=== PATIENT | male | born 1990 | race Caucasian/White ===

== ENCOUNTER 2019-09-11 11:39 | Emergency (ER) | payer SELFPAY ==
[~2019-09-11] VITALS: Ht 185.4 cm; Wt 81.8 kg
[2019-09-11 11:48] VITALS: Ht 185.4 cm; Wt 81.8 kg
[2019-09-11 13:11] VITALS: BP 128/86
[2019-09-11 13:21] LABS: BILIRUBIN NEGATIVE (NEGATIVE); GLUCOSE 250 mg/dL (NEGATIVE); KETONE NEGATIVE (NEGATIVE); NITRITE NEGATIVE (NEGATIVE); SPECIFIC GRAVITY 1.005 (1.005-1.020); UROBILINOGEN NORMAL (NORMAL)
[2019-09-11 13:22] LABS: BACTERIA FEW /hpf (NEGATIVE); WHITE CELLS - URINE >50 /hpf (NEGATIVE)
[2019-09-11 13:23] LABS: EPITHELIAL CELLS RARE /hpf (0-5)
[2019-09-14 12:10] LABS: CHLAMYDIA TRACHOMATIS, NAA Negative (Negative)
== END 2019-09-11 13:11 | disposition home or self-care (01) ==
LOC: D.ER 11:39
PROVIDERS: Family Medicine
DX: Z20.2 Contact with and (suspected) exposure to infections with a predominantly sexual mode of transmission (principal); R30.0 Dysuria; R36.9 Urethral discharge, unspecified